=== PATIENT | female | born 1960 ===

== ENCOUNTER 2019-02-10 11:18 | Emergency (ER) | payer BC ==
[2019-02-10 11:27] VITALS: RESP 18
--- NOTE | 2019-02-10 13:03 | CT ---
Date of service: 02/10/2019 PROCEDURE: CT MAXILLOFACIAL BONES WITHOUT CONTRAST HISTORY: Fall COMPARISON: None available. TECHNIQUE: Contiguous axial CT images of the maxillofacial bones were obtained. Coronal and sagittal reformats were generated. Radiation dose: Total exam DLP = 879.18 mGy-cm. This CT exam was performed using one or more of the following dose reduction techniques: Automated exposure control, adjustment of the mA and/or kV according to patient size, and/or use of iterative reconstruction technique. FINDINGS: NASAL BONES: Unremarkable. ORBITS: Unremarkable. PARANASAL SINUSES/ MASTOIDS: There is evidence of prior sinus surgery with resection of the ostiomeatal complex and infundibular regions as well as the inferior ethmoid air cells. There is chronic inspissated mucosa in the left maxillary sinus with chronic sinusitis and mucoperiosteal thickening of the left maxilla identified. MAXILLA: Intact. Please see above. MANDIBLE/ TEMPOROMANDIBULAR JOINTS: Unremarkable. SKULL BASE: Unremarkable. TEMPORAL BONES: Middle ears and mastoid grossly unremarkable. OTHER FINDINGS: Visualized portions of the brain are within normal limits. Left globe is a intact and right globe is intact. Retro-orbital regions are unremarkable. There is mild soft tissue swelling seen overlying the preseptal region of the left orbit and additional soft tissue swelling is seen overlying the left zygomatic or frontal suture region. Zygoma are intact as well as the zygomatic or frontal suture regions. Visualized cervical spine is unremarkable except for degenerative changes. Posterior nasopharynx is within normal limits. IMPRESSION: Unremarkable non contrast enhanced CT of the maxillofacial bones. Mild soft tissue swelling overlying the left orbit and left lateral zygoma region. No appreciable facial bone fracture or orbital fracture. Chronic left maxillary sinusitis and prior sinus surgery.
--- NOTE | 2019-02-10 13:25 | ED PDOC ---
HPI: Trauma/Fall - HPI Time Seen by Provider: 02/10/19 11:42 Chief Complaint (Nursing): Trauma Chief Complaint (Provider): Trauma History Per: Patient History/Exam Limitations: no limitations Onset/Duration Of Symptoms: Days Additional Complaint(s): 58 y/o female presents to the ED for evaluation of left maxilla pain s/p trip and fall prior to arrival. Patient reports she tripped and fell in the grocery store, hitting the left side of her face against a shelf at 10:35 AM. PMD: Raymundo Parr Past Medical History Reviewed: Historical Data, Nursing Documentation, Vital Signs Vital Signs: Last Vital Signs Temp 98.3 F 02/10/19 11:23 Pulse 75 02/10/19 11:23 Resp 18 02/10/19 11:23 BP 146/93 H 02/10/19 11:23 Pulse Ox 97 02/10/19 11:23 - Medical History PMH: COPD, HTN, Hyperlipidemia, Hypothyroidism, Rheumatoid Arthritis Denies: Chronic Kidney Disease - Surgical History Surgical History: No Surg Hx - Family History Family History: States: Unknown Family Hx - Home Medications Home Medications: Ambulatory Orders Medication Instructions Recorded Naproxen [Naprosyn] 500 mg PO BID PRN #15 tablet 02/10/19 - Allergies Allergies/Adverse Reactions: Allergies Allergy/AdvReac Type Severity Reaction Status Date / Time No Known Allergies Allergy Verified 02/10/19 11:22 Review of Systems ROS Statement: Except As Marked, All Systems Reviewed And Found Negative Musculoskeletal: Positive for: Other (facial pain) Physical Exam - Reviewed Nursing Documentation Reviewed: Yes Vital Signs Reviewed: Yes - Physical Exam Appears: Positive for: No Acute Distress Head Exam: Negative for: NORMAL INSPECTION (ecchymosis to the left eyelid and left maxilla. No deformity) Skin: Positive for: Normal Color, Warm, Dry Eye Exam: Positive for: Normal appearance, EOMI, PERRL. Negative for: Conjunctival injection ENT: Positive for: Other (full ROM at the TMJ. No crepidous) Neck: Positive for: Normal Cardiovascular/Chest: Negative for: Bradycardia, Tachycardia Respiratory: Negative for: Accessory Muscle Use, Respiratory Distress Extremity: Positive for: Normal ROM Neurological/Psych: Positive for: Awake, Alert, Oriented. Negative for: Motor/Sensory Deficits - ECG O2 Sat by Pulse Oximetry: 97 (RA) Pulse Ox Interpretation: Normal Medical Decision Making Medical Decision Making: Time: 1153 Impression: Facial injury s/p fall Plan: -- CT Maxillofacial w/o Contrast Scribe Attestation: Documented by Stanford Moise, acting as a scribe Demetrio Lau MD. Provider Scribe Attestation: All medical record entries made by the Scribe were at my direction and personally dictated by me. I have reviewed the chart and agree that the record accurately reflects my personal performance of the history, physical exam, medical decision making, and the department course for this patient. I have also personally directed, reviewed, and agree with the discharge instructions and disposition. Disposition - Clinical Impression Clinical Impression: Facial contusion - Disposition Disposition: Routine/Home Disposition Time: 13:25 Condition: STABLE Additional Instructions: FOLLOW-UP WITH PMD WITHIN 2 DAYS FOR REEVALUATION. Prescriptions: Naproxen [Naprosyn] 500 mg PO BID PRN #15 tablet PRN Reason: Pain, Moderate (4-7) Instructions: Contusion (DC) Forms: [facility] ([place])
[2019-02-10 13:45] VITALS: BP 119/76; PULSE 70; TEMP 99.1
[2019-02-11 08:03] VITALS: O2SAT 97
== END 2019-02-10 13:40 | disposition home or self-care (01) ==
LOC: H.ER 11:18
DX: S00.83XA Contusion of other part of head, initial encounter (principal); I10 Essential (primary) hypertension; J44.9 Chronic obstructive pulmonary disease, unspecified; M06.9 Rheumatoid arthritis, unspecified; E03.9 Hypothyroidism, unspecified; E78.5 Hyperlipidemia, unspecified; W01.0XXA Fall on same level from slipping, tripping and stumbling without subsequent striking against object, initial encounter